=== PATIENT | female | born 1955 | race Caucasian/White ===

== ENCOUNTER 2018-02-02 08:19 | Day surgery (SDC) | payer OTHER ==
[2018-02-02] VITALS (8 sets, daily range): BP systolic 99–113; BP diastolic 56–76; PULSE 52–56; RESP 14–34; Ht 165.1 cm; Wt 122.4 kg
[~2018-02-02] VITALS: Ht 165.1 cm; Wt 122.4 kg
[2018-02-02] MEDS ORDERED: LANS15CA5 PO (09:01)
[2018-02-02] MEDS ORDERED: ATOR40TA68 PO (09:01)
[2018-02-02] MEDS ORDERED: FER325 PO (09:02)
[2018-02-02] MEDS ORDERED: RIVA20TA5 PO (09:02)
[2018-02-02] MEDS ORDERED: AMLO-147 PO (09:03)
[2018-02-02] MEDS ORDERED: BISO1TAB3 PO (09:03)
[2018-02-02] MEDS ORDERED: CYCLOPENTOLATE 1% 2 ML OPH RIGHT EYE ONE ×3 (09:30→10:00)
[2018-02-02] MEDS ORDERED: APRACLONIDINE 1% 0.1 ML OPH OPER PRN (09:30)
[2018-02-02] MEDS ORDERED: TETRACAINE 0.5% 4 ML OPH OPER SCH (09:30)
[2018-02-02] MEDS ORDERED: PHENYLephrine 2.5% 15 ML OPH OPER SCH (09:30)
[2018-02-02] MEDS ORDERED: ACETAZOLAMIDE 250 MG TAB PO PRN (09:30)
[2018-02-02] MEDS ORDERED: BALANCED SALT SOLN OPH IRRIG 500 ML, EPINEPHrine 0.1 MG, GENTAMICIN 4 MG, VANCOMYCIN 10 MG IRR SCH ×4 (09:30)
[2018-02-02] MEDS ORDERED: LIDOCAINE 4% (MPF) 5 ML INJ INJ SCH (09:30)
[2018-02-02] MEDS ORDERED: TROPICAMIDE 1% 3 ML OPH OPER SCH (09:30)
[2018-02-02] MEDS ORDERED: ACETAMINOPHEN 500 MG TAB PO ONE (09:30)
[2018-02-02] MEDS ORDERED: NEOMYC/POLYMYX/DEXAM 3.5GM OPH OINT OPER ONE (09:30)
[2018-02-02] MEDS ORDERED: TOBRAMYCIN 0.3% 5 ML OPH OPER SCH (09:30)
[2018-02-02] MEDS ORDERED: PREDNISOLONE ACET 1% 5 ML OPH OPER SCH (09:30)
--- NOTE | 2018-02-02 10:25 | PREAC ---
Date/Time of Note Date/Time of Note DATE: 02/02/18 TIME: 10:23 Anesthesia Eval and Record Evaluation Time Pre-Procedure Interview DATE: 02/02/18 TIME: 10:23 Age 62 Sex female NPO: 8 hrs Preoperative diagnosis right cataract Planned procedure right eye cataract extraction intraocular lens implant Past Medical History Past Medical History: Includes Cardio: HTN, Dyslipidemia, Arrythmia (atrial fibrillation) GI: Morbid obesity Surgery & Anesthesia Issues No known issue Meds Anticoagulation: Yes (xarelto) Beta Chantelle within 24 hr: Yes Reason Beta Chantelle not given: Bradycarida, Hypotension Reported Medications Amlodipine Besylate* (Amlodipine Besylate*) 10 Mg Tablet, 10 MG PO DAILY, #30 TAB 02/02/18 Bisoprolol Fumarate/Hctz (Bisoprolol-Hctz 5-6.25 mg Tab) 1 Each Tablet, 1 EACH PO DAILY, TAB 02/02/18 Ferrous Sulfate* (Ferrous Sulfate*) 325 Mg Tabec, 325 MG PO DAILY, TAB 02/02/18 Rivaroxaban* (Xarelto*) 20 Mg Tablet, 20 MG PO WITH DINNER, TAB 02/02/18 Atorvastatin* (Atorvastatin*) 40 Mg Tablet, 40 MG PO QHS, #30 TAB 02/02/18 Lansoprazole* (Lansoprazole*) 15 Mg Capsule.dr, 15 MG PO DAILY, CAP 02/02/18 Current Medications Tropicamide (Mydriacyl 1%) 1 drop Q5 MIN X3 OPER ; Start 02/02/18 at 09:30 Phenylephrine HCl (Ak-Dilate 2.5%) 1 drop Q5 MIN X 3 OPER ; Start 02/02/18 at 09:30 Tetracaine HCl (Tetracaine 0.5% Steri-Unit Sia) 2 drop ONCE (PRE-OP) OPER ; Start 02/02/18 at 09:30 Lidocaine (Xylocaine 4% (Mpf)) 5 ml INTRA-OP INJ ; Start 02/02/18 at 09:30 Sod Cl/Ca Cl/Mg Cl/Pot Cl/ Epinephrine/ Gentamicin Sulfate/ Vancomycin HCl INTRA-OP IRR ; Start 02/02/18 at 09:30 Tobramycin Sulfate (Tobrex 0.3% Oph Drop) 1 drop INTRA-OP OPER ; Start 02/02/18 at 09:30 Prednisolone Acetate (Pred-Forte 1%) 1 drop INTRA-OP OPER ; Start 02/02/18 at 09:30 Acetazolamide (Diamox) 250 mg POST-OP PRN PO X1 IF TRABECULECTOMY PERFORMED; Start 02/02/18 at 09:30 Apraclonidine HCl (Iopidine 1% Oph) 1 drop POST-OP PRN OPER IF UNABLE TO TAKE DIAMOX; Start 02/02/18 at 09:30 Meds reviewed: Yes Allergies Coded Allergies: No Known Allergy (Unverified , 02/02/18) Allergies Reviewed: Yes Labs/Studies Labs Reviewed: Reviewed by anesthesiologist test: N/A Studies: ECG (atrial fibrillation with normal ventricular response) Pre-procedure Exam Airway: Adequate mouth opening, Adequate thyromental dist Mallampati: Mallampati II Teeth: Normal Lung: Normal Heart: Normal ASA Physical Status ASA physical status: 3 Emergency: None Planned Anesthetic General/MAC: MAC Pre-operative Attestations Prior to commencing anesthesia and surgery, the patient was re-evaluated, there was verification of: *The patient's identity *The results of appropriate recent lab work and preoperative vital signs *The above evaluation not changing prior to induction *Anesthetic plan, risk benefits, alternative and complications discussed with patient/family; questions answered; patient/family understands, accepts and wishes to proceed. LAZARA CHANEY MD Feb 02, 2018 10:25
[2018-02-02] MEDS ORDERED: MIDAZOLAM 1 MG/ML 2 ML INJ ONE (10:34)
[2018-02-02] MEDS ORDERED: FENTAnyl 50 MCG/ML VIAL ONE (10:34)
[2018-02-02] MEDS ORDERED: LIDOCAINE 2% (SDV) 5 ML INJ ONE (10:39)
[2018-02-02] MEDS ORDERED: ONDANSETRON 4 MG INJ ONE (10:56)
[2018-02-02] MEDS ORDERED: ONDANSETRON 4 MG INJ IV PRN (11:00)
[2018-02-02] MEDS ORDERED: HYDROmorphONE 1 MG/5 ML IV SYRINGE IV PRN ×3 (11:00)
[2018-02-02] MEDS ORDERED: FENTAnyl 50 MCG/ML VIAL IV PRN (11:00)
[2018-02-02] MEDS ORDERED: OXYCODONE/ACETAMINOPHEN (5/325) TAB PO PRN (11:00)
[2018-02-02] MEDS ORDERED: MEPERIDINE 25 MG INJ IV PRN (11:00)
[2018-02-02] MEDS ORDERED: hydrALAzine 20 MG INJ IV PRN (11:00)
[2018-02-02] MEDS ORDERED: DIPHENHYDRAMINE 50 MG INJ IV PRN (11:00)
--- NOTE | 2018-02-02 11:16 | NUR ---
RECEIVED FROM OR VIA [employer] S/P RT. CAT EXT . WITH LENS IMPLANT. IV INFUSING INLT. HAND # [id number] ANGIOCATH.
--- NOTE | 2018-02-02 11:22 | PAC ---
Date/Time of Note Date/Time of Note DATE: 02/02/18 TIME: 11:21 Post-Anesthesia Notes Post-Anesthesia Note Activity: WNL Respiratory function: WNL Cardiovascular function: WNL Mental status: Baseline Pain reasonably controlled: Yes Hydration appropriate: Yes Nausea/Vomiting absent: Yes Comments BP: 106/60 HR: 60 RR: 15 T: 99 SaO2: 96% LAZARA CHANEY MD Feb 02, 2018 11:21
--- NOTE | 2018-02-02 11:47 | NUR ---
REPORT GIVEN TO DUONG SANCHEZ. TRANSPORTED TO [facility] AT 1154 HRS. ACCOMPANIED BY TRANSPORT IN STABLE CONDITION. DENIES PAIN AT PRESENT. IV REMAINS PATENT. FAMILY CALLED RE- TRANSFER TO [facility].
--- NOTE | 2018-02-02 11:53 | OPR ---
Date/Time of Note Date/Time of Note DATE: 02/02/18 TIME: 11:51 Operative Report Preoperative Diagnosis cATARACT RIGHT EYE Postoperative Diagnosis SAME Operation/Procedure Performed CATARACT REMOVAL WITH LENS IMPLANT RIGRT EYE Surgeon see signature line Product Finisher NONE Anesthesia Type: MAC Estimated Blood Loss: none Transfusion none Specimen NONE Grafts/Implants none Complications none Procedure Description CATARACT REMOVAL WITH LENS IMPLANT RIGHT EYE DIONICIO OSPINA MD Feb 02, 2018 11:53
== END 2018-02-02 12:25 | disposition home or self-care (01) ==
LOC: SDS 08:19
PROVIDERS: ATTEND Ophthalmology
DX: H25.89 Other age-related cataract (principal); I10 Essential (primary) hypertension; E78.5 Hyperlipidemia, unspecified; I48.91 Unspecified atrial fibrillation; E66.01 Morbid (severe) obesity due to excess calories; Z68.41 Body mass index [BMI] 40.0-44.9, adult
CPT/HCPCS: 66984; J2250; J2405; J3010; V2632